=== PATIENT | male | born 1960 | race Caucasian/White ===

== ENCOUNTER 2018-04-06 10:52 | Emergency (ER) | payer OTHER ==
[~2018-04-06] VITALS: Ht 172.7 cm; Wt 93.9 kg
[~2018-04-06 10:52] MED LIST: AMBEREN; ASPIRIN EC81 M1 PO; ATIVAN1 MG PO; CLARITIN10 M2 PO; DEPAKOTE 250MG250 M1 PO; FOLIC ACID1 MG PO; LISINOPRIL2.5 MG PO; MELOXICAM7.5 MG PO; RISPERDAL 3 MG T3 M1 PO; RISPERDAL1 MG/1 ML; SEROQUEL200 MG PO; SEROQUEL400 MG PO; [UNRECOGNIZED DRUG - OTHER] PO
[2018-04-06 11:27] LABS: ABSOLUTE NEUTROPHILS 2.8 thou/uL (1.4-8.2); BASOPHILS 0.5 % (0.0-2.0); EOSINOPHILS 1.5 % (0.0-3.0); HEMATOCRIT 41.5 % (42.0-52.0); HEMOGLOBIN 14.1 gm/dL (14.0-18.0); LYMPHOCYTES 28.1 % (24.0-44.0); MCH 34.3 pg (26.0-34.0); MCHC 34.1 g/dL (28.0-37.0); MCV 100.8 fL (80.0-100.0); MONOCYTES 9.1 % (1.0-8.0); PLATELET COUNT 141 thou/uL (150-400); POLYS 60.8 % (36.0-66.0); RBC 4.12 mil/uL (4.50-6.00); RDW 13.9 % (10.5-14.5); WBC 4.6 thou/uL (4.0-11.0)
[2018-04-06 11:33] LABS: CALCIUM 8.9 mg/dL (8.5-10.1); CREATININE 0.8 mg/dL (0.7-1.3)
[2018-04-06 11:39] LABS: ALBUMIN 3.3 g/dL (3.4-5.0); TOTAL BILIRUBIN 0.4 mg/dL (<0.1-1.0); TOTAL PROTEIN 6.3 g/dL (6.4-8.2)
[2018-04-06] MEDS ORDERED: SPIRIVA INH (11:59)
[2018-04-06] MEDS ORDERED: FLONASE 0.05%50 MCG NASAL (11:59)
[2018-04-06] MEDS ORDERED: FOLIC ACID1 MG PO (11:59)
[2018-04-06] MEDS ORDERED: ZYPREXA 5 MG TAB5 M1 PO (11:59)
[2018-04-06] MEDS ORDERED: NUEDEXTA 20-101 EACH PO (12:00)
[2018-04-06] MEDS ORDERED: ADVAIR HFA 230M12 GM INH (12:00)
[2018-04-06] MEDS ORDERED: RANITIDINE 150150 M1 PO (12:00)
[2018-04-06] MEDS ORDERED: ALEVE220 MG PO (12:00)
[2018-04-06] MEDS ORDERED: TYLENOL325 MG PO (12:01)
[2018-04-06] MEDS ORDERED: BENZTROPINE ME0.5 MG PO (12:01)
[2018-04-06] MEDS ORDERED: MILK OF MA2400 MG/10 PO (12:02)
[2018-04-06] MEDS ORDERED: SENNA8.6 MG PO (12:02)
[2018-04-06] MEDS ORDERED: HALDOL 0.5 MG0.5 MG PO (12:03)
[2018-04-06] MEDS ORDERED: HALDOL5 MG/1 ML IV (12:03)
[2018-04-06] MEDS ORDERED: ATIVAN1 MG PO (12:04)
[2018-04-06] MEDS ORDERED: ZYPREXA10 MG IM (12:04)
[2018-04-06 12:45] VITALS: BP 123/73
== END 2018-04-06 12:46 | disposition home or self-care (01) ==
LOC: ER 10:52
PROVIDERS: Emergency Medicine
DX: R10.9 Unspecified abdominal pain (principal); Z88.0 Allergy status to penicillin; Z88.8 Allergy status to other drugs, medicaments and biological substances